=== PATIENT | male | born 1980 | race Caucasian/White ===

== ENCOUNTER 2017-07-04 07:11 | Outpatient (CLI) | payer OTHER | END 2017-07-04 07:34 | disposition home or self-care (01) | LOC: LAB 07:11 | DX: D55.9 Anemia due to enzyme disorder, unspecified (principal); D53.9 Nutritional anemia, unspecified; N39.0 Urinary tract infection, site not specified; E89.0 Postprocedural hypothyroidism; I11.9 Hypertensive heart disease without heart failure ==

== ENCOUNTER 2018-02-05 09:20 | Outpatient (CLI) | payer OTHER | END 2018-02-05 09:26 | disposition home or self-care (01) | LOC: LAB 09:20 | DX: C73 Malignant neoplasm of thyroid gland (principal); E89.0 Postprocedural hypothyroidism ==

== ENCOUNTER 2018-05-14 09:23 | Outpatient (CLI) | payer OTHER | END 2018-05-14 09:30 | disposition home or self-care (01) | LOC: LAB 09:23 | DX: C73 Malignant neoplasm of thyroid gland (principal); E89.0 Postprocedural hypothyroidism ==

== ENCOUNTER 2018-07-09 08:26 | Outpatient (CLI) | payer OTHER | END 2018-07-09 08:37 | disposition home or self-care (01) | LOC: LAB 08:26 | DX: I10 Essential (primary) hypertension (principal); N39.0 Urinary tract infection, site not specified; E78.2 Mixed hyperlipidemia; C73 Malignant neoplasm of thyroid gland; E89.0 Postprocedural hypothyroidism; E55.9 Vitamin D deficiency, unspecified ==

== ENCOUNTER 2018-12-02 09:38 | Outpatient (CLI) | payer OTHER | END 2018-12-02 16:23 | disposition home or self-care (01) | LOC: LAB 09:38 | DX: C73 Malignant neoplasm of thyroid gland (principal); E89.0 Postprocedural hypothyroidism ==

== ENCOUNTER → 2019-06-05 09:54 | Outpatient (CLI) | payer OTHER | END | disposition home or self-care (01) | LOC: LAB 09:54 | DX: D64.89 Other specified anemias (principal); E11.9 Type 2 diabetes mellitus without complications; E78.2 Mixed hyperlipidemia; E03.8 Other specified hypothyroidism; I10 Essential (primary) hypertension ==

== ENCOUNTER 2019-07-01 08:04 | Outpatient (CLI) | payer OTHER | END 2019-07-01 08:21 | disposition home or self-care (01) | LOC: LAB 08:04 | DX: C73 Malignant neoplasm of thyroid gland (principal); I11.0 Hypertensive heart disease with heart failure; N39.0 Urinary tract infection, site not specified; E89.0 Postprocedural hypothyroidism; D55.9 Anemia due to enzyme disorder, unspecified ==

== ENCOUNTER 2019-12-22 10:13 | Outpatient (CLI) | payer OTHER | END 2019-12-22 13:09 | disposition home or self-care (01) | LOC: LAB 10:13 | PROVIDERS: ATTEND Internal Medicine Endocrinology, Diabetes & Metabolism | DX: I11.0 Hypertensive heart disease with heart failure (principal); E89.0 Postprocedural hypothyroidism; C73 Malignant neoplasm of thyroid gland ==

== ENCOUNTER → 2020-11-29 08:02 | Outpatient (CLI) | payer OTHER | END | disposition home or self-care (01) | LOC: LAB 08:02 | PROVIDERS: ATTEND Internal Medicine Sports Medicine | DX: C73 Malignant neoplasm of thyroid gland (principal); E89.0 Postprocedural hypothyroidism; D09.3 Carcinoma in situ of thyroid and other endocrine glands ==

== ENCOUNTER 2021-07-01 06:58 | Outpatient (CLI) | payer OTHER | END 2021-07-01 06:59 | disposition home or self-care (01) | LOC: LAB 06:58 | PROVIDERS: ATTEND Internal Medicine Endocrinology, Diabetes & Metabolism | DX: E04.8 Other specified nontoxic goiter (principal); C73 Malignant neoplasm of thyroid gland; I11.0 Hypertensive heart disease with heart failure; N39.0 Urinary tract infection, site not specified; D53.8 Other specified nutritional anemias ==

== ENCOUNTER → 2021-11-28 10:29 | Outpatient (CLI) | payer OTHER | END | disposition home or self-care (01) | LOC: LAB 10:29 | PROVIDERS: ATTEND Internal Medicine Endocrinology, Diabetes & Metabolism | DX: C63.9 Malignant neoplasm of male genital organ, unspecified (principal); E89.0 Postprocedural hypothyroidism ==